=== PATIENT | female | born 1990 | race African-American/Black ===

== ENCOUNTER 2020-07-26 21:42 | Emergency (ER) | payer BC, SELFPAY ==
[~2020-07-26] VITALS: Ht 160 cm; Wt 81.6 kg
[2020-07-26 22:01] VITALS: BP 131/82
[2020-07-26] MEDS ORDERED: Tetanus/Diptheria/Pertussis IM ONE ×2 (22:10→22:15)
[2020-07-26] MEDS ORDERED: TYLENOL325 MG ORAL (22:12)
[2020-07-26] MEDS ORDERED: CEPHALEXIN500 M1 ORAL (22:12)
[2020-07-26 22:21] VITALS: BP 131/82
--- NOTE | 2020-07-27 01:54 | Emergency Room Report ---
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 Tdap is not up-to-date. Patient is currently on her period. Denies fevers, chills, nausea, vomiting, diarrhea, chest pain, shortness of breath or pain with flexion or extension of the left thumb The patient's symptoms were chronic onset, severity was moderate, duration since 90 days. Quality: Aching Past medical history: Denies Past surgical history: Denies Smoking: ++ Alcohol use: Denies Drug use: Denies Review of systems: CONST: No fevers or chills, No night sweats PULMONARY: No productive cough, No shortness of breath CARDIAC: No chest pain, No palpitations GI: No vomiting, No diarrhea , No melena_or_BRBPR : No dysuria, No hematuria, No discharge NEURO: No new_focal_weakness_or_numbness, No confusion, No vision changes 14 point Review of Systems is otherwise negative except per HPI Physical Exam: GENERAL: Awake_alert_ nontoxic, no acute distress Spo2 96% on RA -normal EYES: Extraocular muscles are intact. Conjunctivae clear. Lids without swelling ENT: External nose and ear normal_in_appearance. Oropharynx clear. Head_atraumatic, Moist_oral_mucosa NECK: No JVD. No meningismus. No thyromegaly. Supple. Trachea midline RESP: Normal respiratory effort. Symmetric rise. No stridor. Clear_to_auscultation_No_rales_No_wheezes CARDIAC: Regular rate and regular rhytm. No_significant pedal edema. ABDOMEN: Soft. Nondistended. Nontender_No_rebound_or_guarding. MSK: Normal muscle tone, without rigidity. Extremities without asymmetric deformity or swelling. SKIN: Warm and dry. No visible cyanosis or pallor. Chronic appearing ulceration to the dorsal left thumb distal to the MCP joint. Compartments are soft and compressible. No fusiform swelling. No pain with passive extension. Preserved flexion/extension at MCP and PIP. Sensation is intact to light touch.. Cap refill less than 2 seconds. No cellulitis. No abscess NEUROLOGIC: Alert, oriented x3. Motor_and_sensation_grossly_intact. No truncal ataxia. Gait_normal Psych: Normal mood and affect, normal judgment and insight - COORDINATION OF CARE Case was discussed with: Patient Medical Decision Making/Plan: Differential diagnosis: Ulceration versus abscess versus cellulitis 30-year-old [id number] female presents with chronic left dorsal thumb ulceration She is afebrile. Well-appearing. Kanavel signs are negative. There is no palpable abscess for drainage. Thumb is neurovascularly intact. Doubt tendon injury/infection. Doubt septic joint Tdap was updated. Pain control provided. The wound is chronically ulcerated at this point. No emergent debridement is indicated at this time. I have instructed patient to follow-up with her primary care doctor for referral to a associate genetics professor for possible debridement if she is concerned about the cosmetics of the ulceration. Doubt active infection, however will prescribe Keflex for short period of time. Off work note given x3 days. Pertinent results reviewed with the patient. I educated the patient on the current treatment plan including the risks, benefits, and alternatives. I also discussed the extent and limitations of the current evaluation. The patient expressed understanding and agreement with plan. I recommended PMD follow-up within 1-2 days. Also advised that the patient return to the Emergency Department as soon as possible if they experience any new, persistent, or worsening symptoms. Allergies: Coded Allergies: No Known Allergies (Unverified , 07/26/20) COVID-19 Screening Contact w/high risk pt: No Experienced COVID-19 symptoms?: No COVID-19 Testing performed MUSIC PUBLICIST: No Nursing Documentation-PMH Past Medical History: No Stated History Physical Exam Vital Signs Date Time Temp Pulse Resp B/P (MAP) Pulse Ox O2 Delivery O2 Flow Rate FiO2 07/26/20 21:53 98.6 78 18 131/82 (98) 96 Room Air Sp02 EP Interpretation: reviewed, normal Medical Decision Making Diagnostic Impression: Primary Impression: thumb ulcer Last Vital Signs Date Time Temp Pulse Resp B/P (MAP) Pulse Ox O2 Delivery O2 Flow Rate FiO2 07/26/20 22:21 98.6 78 18 131/82 96 Room Air Disposition: HOME, SELF-CARE Admit Decision Time: 23:30 Condition: Stable Scripts Acetaminophen (Tylenol) 325 Mg Tablet 650 MG ORAL Q6H PRN for Prn Pain/Headache/Temp > 101, #30 TAB 0 Refills Prov: Mandy Brar D.O. 07/26/20 Cephalexin* (KEFLEX*) 500 Mg Tablet 500 MG ORAL BID for 10 Days, #20 CAP Prov: Mandy Brar D.O. 07/26/20 Referrals: NOT CHOSEN IPA/MD,REFERRING (PCP) [facility] Psych ER - Peds ER - Patient Instructions: Skin Ulcer, Wound Check Additional Instructions: Instructions for patient/accounting officer: Follow up with your physician in 1-2 days for referral to associate genetics professor regarding your chronic thumb ulceration. Follow-up with your doctor sooner if your condition requires a more timely clinical reevaluation. Return to the emergency department immediately if you feel that your condition is worsening or if you have any new or concerning symptoms. Review your discharge instructions and take any prescriptions given as instructed. [facility] PROVIDES FREE OR LOW-COST HEALTH SERVICES TO PEOPLE WHO CAN SHOW PROOF THAT THEY LIVE IN [facility]. TO FIND MORE CLINICS PARTNERED WITH THE [facility] TO PROVIDE SERVICE, PLEASE CALL . Mandy Brar D.O. Jul 27, 2020 01:54
== END 2020-07-26 22:20 | disposition home or self-care (01) ==
LOC: EMR 22:20
DX: L98.499 Non-pressure chronic ulcer of skin of other sites with unspecified severity (principal); Z23 Encounter for immunization
CPT/HCPCS: 90471; 90715; 99282